=== PATIENT | female | born 1950 | race Caucasian/White ===

== ENCOUNTER 2020-01-26 14:45 | Emergency (ER) | payer MEDICARE, SELFPAY ==
[2020-01-26 14:49] VITALS: BP 116/56; PULSE 89; RESP 16; TEMP 36.9; O2SAT 98; BMI 25.4
--- NOTE | 2020-01-26 18:37 | ED_ITS ---
HPI - Ear Problem <DYLAN Sanchez - Last Filed: 01/26/20 18:44> General Chief complaint: Ear Stated complaint: right ear ache x2 days Time Seen by Provider: 01/26/20 14:54 Source: patient Mode of arrival: Ambulatory Limitations: no limitations History of Present Illness HPI Narrative: The patient is a 69-year-old female nonsmoker who denies pertinent medical history presents with a chief complaint of right earache for the past 2 days. She states that it feels swollen, pulses and comes and goes. She has tried Tylenol and Motrin. She states that she gets frequent ear infections at this time of year. She denies any fevers nausea vomiting or diarrhea. She states it hurts to press in the back of her ear. Related Data Previous Rx's Medication Instructions Recorded ofloxacin 10 drop EAR-RIGHT DAILY 7 Days #10 01/26/20 ml Allergies Allergy/AdvReac Type Severity Reaction Status Date / Time No Known Drug Allergies Allergy Verified 01/26/20 14:48 Review of Systems <DYLAN Sanchez - Last Filed: 01/26/20 18:44> Review of Systems Narrative: GENERAL: Denies chills, fatigue, malaise, fever, sweats. HEENT: See HPI RESPIRATORY: Denies dyspnea, cough, wheezing, hemoptysis, sputum. CARDIOVASCULAR: Denies chest pain, palpitations, orthopnea, edema, GASTROINTESTINAL: Denies nausea, vomiting, abdominal pain, diarrhea, constipation, melena. : Denies dysuria, frequency, incontinence, hematuria, urinary retention. MUSCULOSKELETAL: denies weakness, joint pain, or bony pain SKIN: Denies rash, skin lesions, or other NEUROLOGIC: Denies weakness, headache, numbness, change in speech, confusion, seizures, incoordination. PSYCHIATRIC: No concerning psychosocial issues. 12 point review of systems is negative except for those stated above Patient History <DYLAN Sanchez - Last Filed: 01/26/20 18:44> Social History Smoking Status: Never smoker Smoking Status: Never smoker Substance Use Type: does not use Exam <DYLAN Sanchez - Last Filed: 01/26/20 18:44> Narrative Exam Narrative: GENERAL: This is a well-nourished, well-developed patient, in mild distress. HEAD: Atraumatic. Normocephalic. No temporal or scalp tenderness. EYES: Pupils equal round and reactive. Extraocular motions intact. No scleral icterus. No injection or drainage. ENT: Nose without bleeding, purulent drainage or septal hematoma. Throat without erythema, tonsillar hypertrophy or exudate. Uvula midline. Airway patent. Right TM pearly schmidt, right ear canal erythematous swollen with drainage. Left TM pearly schmidt, no visual abnormality left canal. Pain to palpation right pinna. No pain to palpation left pinna. NECK: Trachea midline. No JVD or lymphadenopathy. Supple, nontender, no meningeal signs. CARDIOVASCULAR: Regular rate and rhythm RESPIRATORY: Clear to auscultation. Breath sounds equal bilaterally. No wheezes, rales, or rhonchi. No cough. No increased respiratory effort. No accessory muscle use. GASTROINTESTINAL: Abdomen soft, non-tender, nondistended. No hepato- splenomegaly, or palpable masses. No guarding. Active bowel sounds all 4 quadrants. EXTREMITIES: No clubbing, cyanosis, or edema. No joint tenderness, effusion, or edema noted. BACK: Nontender without deformity or crepitance. No flank tenderness. NEURO: AOx3. SKIN: No rash or erythema on visible skin Initial Vital Signs Initial Vital Signs: Vital Signs Temperature 98.4 F 01/26/20 14:49 Pulse Rate 89 01/26/20 14:49 Respiratory Rate 16 01/26/20 14:49 Blood Pressure 116/56 L 01/26/20 14:49 Pulse Oximetry 98 01/26/20 14:49 <Gonzalez Fraire MD - Last Filed: 01/30/20 01:11> Initial Vital Signs Initial Vital Signs: Vital Signs Temperature 98.4 F 01/26/20 14:49 Pulse Rate 89 01/26/20 14:49 Respiratory Rate 16 01/26/20 14:49 Blood Pressure 116/56 L 01/26/20 14:49 Pulse Oximetry 98 01/26/20 14:49 Scores <DYLAN Sanchez - Last Filed: 01/26/20 18:44> GCS [place] coma scale eye opening: Spontaneous [place] coma scale verbal response: Orientated [place] coma scale motor response: Obey commands Bon coma scale total score: 15 Course <DYLAN Sanchez - Last Filed: 01/26/20 18:44> Vital Signs Vital signs: Vital Signs - 8 hr 01/26/20 14:49 Temperature 98.4 F Pulse Rate 89 Respiratory Rate 16 Blood Pressure 116/56 L Pulse Oximetry 98 <Gonzalez Fraire MD - Last Filed: 01/30/20 01:11> Vital Signs Vital signs: Vital Signs - 8 hr 01/26/20 14:49 Temperature 98.4 F Pulse Rate 89 Respiratory Rate 16 Blood Pressure 116/56 L Pulse Oximetry 98 Medical Decision Making <CEDRIC SanchezBC - Last Filed: 01/26/20 18:44> MDM Narrative Medical decision making narrative: The patient is a 69-year-old female who presents with a chief complaint of right ear pain. Exam indicates otitis externa. Will give patient ofloxacin. Encouraged at length Flonase, Yahir med sinus rinse, [id number] medications as needed and able. Discussed at length come back to the ER for any acute concerns. Patient has no questions or concerns upon discharge and states understanding return precautions as well as follow-up care. Discharge Plan Departure Patient Disposition: Home Clinical Impression: Otitis externa Qualifiers: Otitis externa type: unspecified type Chronicity: acute Laterality: right Qualified Code(s): H60.501 - Unspecified acute noninfective otitis externa, right ear Discharge Date/Time: 01/26/20 16:15 Instructions: How to Instill Ear Drops, DI for Otitis Externa Activity Restrictions/Additional Instructions: Thank you for trusting us with your care today. Today I sent a prescription of antibiotic ear drops to [facility]. I also suggest use of Neti pot or NeilMed sinus, followed by Flonase. These are available [id number]. You can also try Sudafed from behind the pharmacy. This would have to be obtained from the pharmacist, though it is not prescription. Please also use warm packs, [id number] medications as needed and able for pain. Please come back to emergency department for any acute concerns. Please follow- up with primary care provider in the next few days. I have given contact information to the [facility] educational resource coordinator, who can help you find a local care provider Prescriptions: New ofloxacin 0.3 % drops 10 drop EAR-RIGHT DAILY 7 Days Qty: 10 RF: 0 Referrals: [facility] [Outside] Miscellaneous,DoctorMD [Primary Care Provider] - <Gonzalez Fraire MD - Last Filed: 01/30/20 01:11> Cosign ED Attending Cosignature Attestation: I was immediately available in the department for consultation. This documentation has been reviewed and I agree with assessment and plan. Supervised by Gonzalez Fraire MD
== END 2020-01-26 16:15 | disposition home or self-care (01) ==
PROVIDERS: Emergency Provider Nurse Practitioner Family
DX: H60.501 Unspecified acute noninfective otitis externa, right ear (principal)
CPT/HCPCS: 99281

== ENCOUNTER 2020-06-06 20:08 | Emergency (ER) | payer MEDICARE, SELFPAY ==
[2020-06-06 20:10] VITALS: BP 134/69; PULSE 88; RESP 20; TEMP 36.6; O2SAT 98
[2020-06-06 20:17] VITALS: BP 134/69; PULSE 89; O2SAT 96
--- NOTE | 2020-06-06 20:29 | DI.CT.S_ITS ---
PROCEDURE: CT HEAD/BRAIN WO CON INDICATIONS: slurred sppech at 1800 TECHNIQUE: Noncontrast 4.5 mm thick angled axial sections acquired from the foramen magnum to the vertex, with coronal and sagittal reformats. For radiation dose reduction, the following was used: automated exposure control, adjustment of mA and/or kV according to patient size. COMPARISON: None. FINDINGS: Image quality: Excellent. CSF spaces: Basal cisterns are patent. No extra-axial fluid collections. Ventricles are normal in size and shape. Brain: No midline shift. No intracranial masses or hemorrhage. Hu-white matter interface is normal. Skull and face: Calvarium and visualized facial bones are intact, without suspicious lesions. Sinuses: Visualized sinuses and mastoids are clear. IMPRESSION: No acute intracranial abnormality demonstrated. Dictated by: Dyllan Chen M.D. on 06/06/2020 at 20:49 Approved by: Dyllan Chen M.D. on 06/06/2020 at 20:50
--- NOTE | 2020-06-06 20:29 | DI.RAD.S_ITS ---
PROCEDURE: XR CHEST 1V INDICATIONS: Possible stroke TECHNIQUE: One view of the chest was acquired. COMPARISON: None. FINDINGS: Surgical changes and devices: None. Lungs and pleura: Lungs are clear. No pleural effusions or pneumothorax. Mediastinum: Mediastinal contours appear normal. Heart size is normal. Bones and chest wall: No suspicious bony lesions. Overlying soft tissues appear unremarkable. IMPRESSION: No acute cardiopulmonary process demonstrated radiographically. Dictated by: Dyllan Chen M.D. on 06/06/2020 at 20:54 Approved by: Dyllan Chen M.D. on 06/06/2020 at 20:54
--- NOTE | 2020-06-06 20:30 | PC.NURSE ---
She had a negative BEFAST exam during triage and NIH scale of zero.
[2020-06-06 20:45] VITALS: BP 121/64; PULSE 80; O2SAT 97
[2020-06-06 20:50] LABS: Add Manual Diff / Slide Review NO; Basophils Absolute Auto 0 /uL (0-100); Eosinophils Absolute Auto 200 /uL (0-450); Eosinophils Percent Auto 3.2 % (2-4); Hematocrit 33.9 % (36-46); Hemoglobin 11.5 g/dL (12.0-16.0); Lymphocytes Absolute Auto 1700 /uL (1100-4500); Lymphocytes Percent Auto 35.9 % (25-40); Mean Corpuscular Hemoglobin 31.5 PG (26-34); Mean Corpuscular Volume 92.7 fL (80-100); Monocytes Absolute Auto 300 /uL (0-900); Neutrophils Absolute Auto 2600 /uL (1500-7000); Neutrophils Percent Auto 52.9 % (50-75); Platelet Count 226 X10^3/uL (150-400); Red Blood Cell Count 3.65 X10^6/uL (4.0-5.2); Red Cell Distribution Width 12.9 % (11.6-14.8); White Blood Cell Count 4.8 X10^3/uL (4.5-11.0)
[2020-06-06 21:00] VITALS: BP 121/68
[2020-06-06 21:00] LABS: INR 1.2 (0.9-1.3); Prothrombin Time 13.5 SECONDS (10.1-12.7)
[2020-06-06 21:03] LABS: PTT Partial Thromboplastin Tim 33 SECONDS (26.4-36.2)
[2020-06-06 21:04] LABS: Alanine Aminotransferase 22 IU/L (<35); Albumin Globulin Ratio 1.6 (1.0-2.8); Alkaline Phosphatase 84 U/L (38-126); Aspartate Aminotransferase 28 IU/L (14-36); BUN Creatinine Ratio 20.9 (6-22); Bilirubin Total 0.1 mg/dL (0.2-1.3); Blood Urea Nitrogen 18 mg/dL (7-17); Calcium 9.5 mg/dL (8.4-10.2); Carbon Dioxide 31 mmol/L (22-32); Chloride 108 mmol/L (98-107); Creatine Kinase 71 U/L (30-135); Estimated Glomerular Filt Rate > 60.0 mL/min (>60); Globulin 2.5 g/dL (1.7-4.1); Glucose 122 mg/dL (80-110); HEMOLYSIS < 15 (0-50); Potassium 3.4 mmol/L (3.4-5.1); Sodium 140 mmol/L (137-145); Total Protein 6.5 g/dL (6.3-8.2)
[2020-06-06 21:16] LABS: Troponin I < 0.012 ng/mL (0.01-0.034)
[2020-06-06 21:30] VITALS: BP 121/68; PULSE 78; RESP 21; O2SAT 97
--- NOTE | 2020-06-06 21:32 | ED_ITS ---
HPI - Neuro Symptoms/Deficit General Chief Complaint: Neuro Symptoms/Deficit Stated Complaint: confusion Time Seen by Provider: 06/06/20 20:30 Source: patient Mode of arrival: Ambulatory Limitations: no limitations History of Present Illness HPI Narrative: The patient is here with a complaint of confusion. She lives in [place], [place]. She has recently moved here, about 2 months ago. Her children are here. She admits to being little home sick, she plans to go back to her home in [place] soon. This evening at dinner, about sex p.m., she admitted to her daughter that she has episodes where she feels confused, where she zones out. Upon arrival she is oriented with no confusion. She has no visual changes, slurred speech, and she is oriented. She has no focal numbness or weakness. She has no difficulty with ambulation. She has no history of CVA. She denies recent illness. She has no headache, sore throat, or cough. She has no cardiopulmonary disease. She has no GI complaints. Related Data Allergies Allergy/AdvReac Type Severity Reaction Status Date / Time No Known Drug Allergies Allergy Verified 01/26/20 14:48 Review of Systems Review of Systems ROS Unobtainable: All systems reviewed & are unremarkable except as noted in HPI and below Constitutional Constitutional: Denies chills, Denies fever(s), Denies lethargy and Denies weakness Eyes Eyes: Denies change in vision ENT Ears, Nose, Mouth, and Throat: Denies sore throat Comments: No ENT complaints. Cardiovascular Cardiovascular: Denies chest pain, Denies irregular heart rhythm, Denies lightheadedness, Denies palpitations, Denies dyspnea and Denies orthopnea Respiratory Respiratory: Denies cough, Denies dyspnea and Denies wheezing Gastrointestinal Gastrointestinal: Denies abdominal pain, Denies nausea and Denies vomiting Musculoskeletal Musculoskeletal: Denies abnormal gait, Denies muscle weakness and Denies numbness Integumentary/Breasts Skin/Breast: Denies erythema, Denies rash and Denies wounds Neurologic Neurologic: Denies abnormal gait, Reports confusion (See HPI), Denies numbness and Denies weakness Psychiatric Psychiatric: Reports anxiety and Reports confusion (See HPI) Endocrine Endocrine: Denies palpitations Allergic/Immunologic Allergic/Immunologic: Denies wheezing Patient History Medical History (Updated 06/06/20 @ 21:53 by Ron Nix MD) Healthy adult Surgical History (Updated 06/06/20 @ 21:53 by Ron Nix MD) No significant past surgical history Social History Smoking Status: Never smoker Smoking Status: Never smoker Substance Use Type: does not use Exam Initial Vital Signs Initial Vital Signs: Vital Signs Temperature 97.9 F 06/06/20 20:10 Pulse Rate 88 06/06/20 20:10 Respiratory Rate 20 06/06/20 20:10 Blood Pressure 134/69 06/06/20 20:10 Pulse Oximetry 98 06/06/20 20:10 Const General: cooperative and well developed Nutritional Appearance: well nourished HENMT Head: normal to inspection and normocephalic Mouth: oral mucosae normal Eyes General: appearance normal, both eyes and all related structures Eyelids: eyelids normal Conjunctivae: conjunctivae normal Sclera: sclerae normal Pupils: PERRL EOM: EOM intact bilaterally Neck Neck: No lymphadenopathy and No JVD Resp Effort & Inspection: normal respiratory effort and able to speak in complete sentences Auscultation: clear to auscultation bilaterally, no rales, no rhonchi and no wheezes Cardio Rate: regular rate Rhythm: regular rhythm Heart Sounds: S1 normal, S2 normal, no click, no gallops, no murmurs and no rubs Pulses: normal peripheral pulses GI Inspection: non-distended Palpation: soft, no hepatosplenomegaly, No guarding, No pulsatile mass and No tender Auscultation: normal bowel sounds Back/Spine/Pelvis Back: normal to inspection and No CVA tenderness Skin General: no rashes or lesions noted and No petechiae Neuro General: patient alert, patient oriented x3, gait normal and no focal motor deficits Speech: speech normal Extrem General: full ROM, no pedal edema and no calf tenderness Other: Normal dorsalis pedis pulses bilaterally. Psych Appearance: well kempt Mental Status: mental status grossly normal Course Orders Ordered: ED Orders 06/06/20 20:29 CT head/brain wo con Stat XR chest 1V Stat Urine Drug Screen, Rapid Stat EKG-12 Lead Stat 06/06/20 20:43 Complete Blood Count AUTO DIFF Stat Comprehensive Metabolic Panel Stat Partial Thromboplastin Time Stat Prothrombin Time INR Stat Troponin & CK Cardiac Panel Stat Vital Signs Vital signs: Vital Signs - 8 hr 06/06/20 20:10 06/06/20 20:17 06/06/20 20:45 Temperature 97.9 F Pulse Rate 88 89 80 Respiratory Rate 20 Blood Pressure 134/69 134/69 121/64 Pulse Oximetry 98 96 97 06/06/20 21:00 Temperature Pulse Rate Respiratory Rate Blood Pressure 121/68 Pulse Oximetry MDM - Neuro Symptoms/Deficit Lab Data Result diagrams: 06/06/20 20:43 06/06/20 20:43 Labs: Lab Results 06/06/20 06/06/20 06/06/20 Range/Units 20:43 20:43 20:43 WBC 4.8 (4.5-11.0) X10^3/uL RBC 3.65 L (4.0-5.2) X10^6/uL Hgb 11.5 L (12.0-16.0) g/dL Hct 33.9 L (36-46) % MCV 92.7 (80-100) fL MCH 31.5 (26-34) PG MCHC 34.0 (30-36) % RDW 12.9 (11.6-14.8) % Plt Count 226 (150-400) X10^3/uL Neut % (Auto) 52.9 (50-75) % Lymph % (Auto) 35.9 (25-40) % [place] % (Auto) 7.0 (3-14) % Eos % (Auto) 3.2 (2-4) % Baso % (Auto) 1.0 (0-2) % Neut # (Auto) 2600 (7936-4508) /uL Lymph # (Auto) 1700 (1302-3464) /uL [place] # (Auto) 300 (0-900) /uL Eos # (Auto) 200 (0-450) /uL Baso # (Auto) 0 (0-100) /uL PT 13.5 H (10.1-12.7) SECONDS INR 1.2 (0.9-1.3) APTT 33 (26.4-36.2) SECONDS Sodium 140 (137-145) mmol/L Potassium 3.4 (3.4-5.1) mmol/L Chloride 108 H (98-107) mmol/L Carbon Dioxide 31 (22-32) mmol/L BUN 18 H (7-17) mg/dL Creatinine 0.86 (0.52-1.04) mg/dL Estimated GFR > 60.0 (>60) mL/min BUN/Creatinine Ratio 20.9 (6-22) Glucose 122 H (80-110) mg/dL Calcium 9.5 (8.4-10.2) mg/dL Total Bilirubin 0.1 L (0.2-1.3) mg/dL AST 28 (14-36) IU/L ALT 22 (<35) IU/L Alkaline Phosphatase 84 (38-126) U/L Total Creatine Kinase 71 (30-135) U/L CK-MB (CK-2) TNP CK-MB (CK-2) Rel Index TNP Troponin I < 0.012 (0.01-0.034) ng/mL Total Protein 6.5 (6.3-8.2) g/dL Albumin 4.0 (3.5-5.0) g/dL Globulin 2.5 (1.7-4.1) g/dL Albumin/Globulin Ratio 1.6 (1.0-2.8) Imaging Data Chest x-ray: Radiologist's Impression: No acute cardiopulmonary process identified. CT scan - head: Radiologist's Impression: No acute intracranial process identified ECG Data Attestation: I personally reviewed and interpreted this ECG as follows: (Normal sinus rhythm rate 79 beats per minute. Normal intervals. No ectopy. No acute ST T wave changes. Normal study.) Discharge Plan Departure Patient Disposition: Home Clinical Impression: Confusion Instructions: Delirium Activity Restrictions/Additional Instructions: Your evaluation is reassuring. Head CT, chest x-ray, an EKG are normal. Labs are very reassuring, a slight elevation in glucose was the only issue noted. A diagnosis of confusion with you having only brief episodes of confusion is quite vague. The evaluation shows no evidence of stroke, I think this have been your major concern. Follow-up with your primary care doctor and discuss these advance your de scribing. Return the ER as needed.
== END 2020-06-06 22:02 | disposition home or self-care (01) ==
PROVIDERS: Emergency Provider Emergency Medicine
DX: R42 Dizziness and giddiness (principal); R47.81 Slurred speech
CPT/HCPCS: 36415; 70450; 71045; 80053; 82550; 84484; 85025; 85610; 85730; 93005; 93010; 99283; 99284

== ENCOUNTER → 2023-08-10 14:58 | Outpatient (CLI) | payer MEDICARE, BC, SELFPAY | PROVIDERS: PCP Registered Nurse; Referring Provider Registered Nurse; Visit Provider Registered Nurse | DX: R06.02 Shortness of breath (principal); F17.210 Nicotine dependence, cigarettes, uncomplicated; R94.2 Abnormal results of pulmonary function studies | CPT/HCPCS: 94010; 94726; 94729 ==

== ENCOUNTER → 2024-07-07 09:59 | Outpatient (CLI) | payer MEDICARE, BC, SELFPAY ==
--- NOTE | 2024-07-07 10:02 | DI.RAD.S_ITS ---
PROCEDURE: XR CHEST 2V INDICATIONS: COUGH TECHNIQUE: 2 views of the chest were acquired. COMPARISON: [facility], CR, XR CHEST 1V, 06/06/2020, 20:46. FINDINGS: Heart, mediastinum and pulmonary vascular: Heart is normal in size and configuration. Mediastinum is unremarkable. Pulmonary vascular is normal. Lungs: Moderate right middle lobe pneumonia has developed since previous exam Pleural spaces: Normal-no effusions or pneumothorax. Bones and soft tissues: Normal IMPRESSION: Moderate right middle lobe pneumonia Dictated by: Mick Plasencia M.D. on 07/08/2024 at 12:18 Approved by: Mick Plasencia M.D. on 07/08/2024 at 12:18
== END ==
PROVIDERS: PCP Registered Nurse; Referring Provider Registered Nurse; Visit Provider Registered Nurse
DX: J18.9 Pneumonia, unspecified organism (principal)
CPT/HCPCS: 71046

== ENCOUNTER → 2024-07-29 15:55 | Outpatient (CLI) | payer MEDICARE, BC, SELFPAY ==
--- NOTE | 2024-07-29 16:00 | DI.RAD.S_ITS ---
PROCEDURE: XR CHEST 2V INDICATIONS: PNEUMONIA TECHNIQUE: 2 views of the chest were acquired. COMPARISON: [facility], CR, XR CHEST 2V, 07/07/2024, 10:02. [facility], CR, XR CHEST 1V, 06/06/2020, 20:46. FINDINGS: Surgical changes and devices: Right upper abdominal surgical clips.. Lungs and pleura: Decreased size of right middle lobe opacity. No pleural effusions or pneumothorax. Mediastinum: Mediastinal contours are normal. Heart size is normal. Bones and chest wall: No suspicious bony abnormalities. Soft tissues appear unremarkable. IMPRESSION: Decreased size right middle lobe opacity with some residual opacity present. Dictated by: Hansel Lorenzo M.D. on 07/29/2024 at 16:36 Approved by: Hansel Lorenzo M.D. on 07/29/2024 at 16:37
== END ==
PROVIDERS: PCP Registered Nurse; Referring Provider Registered Nurse; Visit Provider Registered Nurse
DX: J18.9 Pneumonia, unspecified organism (principal)
CPT/HCPCS: 71046

== ENCOUNTER → 2024-08-30 10:49 | Outpatient (CLI) | payer MEDICARE, BC, SELFPAY ==
--- NOTE | 2024-08-30 10:51 | DI.RAD.S_ITS ---
PROCEDURE: XR CHEST 2V INDICATIONS: Pneumonia, unspecified organism TECHNIQUE: 2 views of the chest were acquired. COMPARISON: [facility], CR, XR CHEST 2V, 07/29/2024, 16:11. FINDINGS: Surgical changes and devices: Postsurgical changes are seen in epigastric region. Lungs and pleura: No focal infiltrate. No pleural effusions or pneumothorax. Mediastinum: Mediastinal contours are normal. Heart size is normal. Bones and chest wall: No suspicious bony abnormalities. Soft tissues appear unremarkable. IMPRESSION: No acute cardiopulmonary pathology. Dictated by: Andrés Rashid M.D. on 08/30/2024 at 11:20 Approved by: Andrés Rashid M.D. on 08/30/2024 at 11:21
== END ==
PROVIDERS: PCP Registered Nurse; Referring Provider Registered Nurse; Visit Provider Registered Nurse
DX: J18.9 Pneumonia, unspecified organism (principal); R05.1 Acute cough; R07.0 Pain in throat
CPT/HCPCS: 0241U; 71046

== ENCOUNTER → 2024-08-30 16:26 | Outpatient (ROUT) | payer MEDICARE, BC, SELFPAY ==
[2024-08-30 17:08] LABS: Influenza A - CEPHEID Flu A NEGATIVE (NEGATIVE); Influenza B - CEPHEID Flu B NEGATIVE (NEGATIVE); Respiratory Syncytial Virus Negative (Negative)
[2024-08-30 17:14] LABS: COVID-19 CEPHEID 4-PLEX PCR Negative (Negative)
== END ==
LOC: LAB 16:27
PROVIDERS: PCP Registered Nurse; Visit Provider Registered Nurse
DX: R05.9 Cough, unspecified (principal); R07.0 Pain in throat
CPT/HCPCS: 0241U